=== PATIENT | female | born 1945 | race Caucasian/White ===

== ENCOUNTER 2019-04-23 15:00 | Outpatient (CLI) | payer MEDICARE, SELFPAY ==
--- NOTE | ~2019-04-23 | MR_ITS ---
EXAMINATION: MR lumbar spine wo con DATE: 04/23/2019 16:56 INDICATION: Low back pain. TECHNIQUE: Magnetic resonance imaging (MRI) of the lumbar spine was performed without intravenous con trast. Sequences included sagittal T2-weighted FSE, sagittal T2-weighted FS FSE, sagittal T1-weighted FSE, and axial T2-weighted FSE. COMPARISON: Lumbar spine MRI 07/08/2017 FINDINGS: There is 5 degrees levocurvature of lumbar spine. There is 3 mm anterolisthesis of L3 on L4 . Vertebral body heights are normal. There are changes of posterior fusion procedure from L3 to L5 wi th pedicle screws. There are changes of L4 laminotomy with chronic seroma in the postsurgical bed. Th ere is moderately decreased disc height at L1-L2, L2-L3, L3-L4, and L5-S1 and severely decreased disc height at L4-L5. The distal spinal cord signal intensity is normal. The conus medullaris is at L1-L2 . The following disc levels are specifically discussed: L1-L2: The disc is bulging with superimposed left central extrusion. There is severe bilateral facet joint osteoarthritis. There is mild bilateral neural foraminal stenosis. There is mild central canal stenosis. L2-L3: The disc is bulging with superimposed left central extrusion. There is severe bilateral facet joint osteoarthritis. There is mild bilateral neural foraminal stenosis. There is moderate central ca nal stenosis. L3-L4: There is a left foraminal extrusion. There is severe bilateral facet joint osteoarthritis. The re is mild bilateral neural foraminal stenosis. There is no central canal stenosis. L4-L5: The disc is bulging with an annular fissure. There is severe bilateral facet joint osteoarthri tis. There is moderate right and mild left neural foraminal stenosis. There is mild central canal luis miguel nosis with posterior decompression. L5-S1: The disc is bulging. There is severe bilateral facet joint osteoarthritis. There is moderate b ilateral neural foraminal stenosis. There is mild central canal stenosis. IMPRESSION: 1. Severe lumbar spondylosis, stable from 07/08/2017. 2. Posterior fusion procedure from L3 to L5. Reviewed, dictated and finalized at location A. ER
--- NOTE | ~2019-04-23 | MR_ITS ---
EXAMINATION: MR hip LT wo con DATE: 04/23/2019 16:57 INDICATION: Left hip pain and weakness TECHNIQUE: Magnetic resonance imaging (MRI) of the left hip was performed without intravenous contra st. Sequences included full-field axial PD-weighted FS FSE and T1-weighted FSE, coronal of the pelvis with PD-weighted FS FSE, small field of view of the left hip with axial PD-weighted FS FSE, sagitta l PD-weighted FS FSE and coronal PD weighted FS FSE. Additional radial T1-weighted FGR oriented ortho gonal to the acetabular rim were obtained for evaluation of the labrum. COMPARISON: None FINDINGS: Bones/labrum/cartilage: Alignment is normal. No fracture, avascular necrosis or pathologic marrow replacing process. Mild to moderate left hip osteoarthritis with partial thickness cartilage loss resulting posterior and poste rosuperior predominant nonuniform joint space narrowing but without degenerative subarticular changes . The left acetabular labrum appears small likely related to hypertrophic osteophyte formation along the rim of the acetabulum. No discrete labral tear. Laminectomies and posterior spinal fusion procedu re with vertical joel and pedicle screw fixation in the visualized lumbar spine. See separate lumbar s pine MRI report for further detail. Fluid: Symmetric physiologic amount of fluid within both hip joints. Soft tissues: There is a large full-thickness tear involving the entire lateral facet of the greater trochanteric i nsertion of the left gluteus medius medius tendon which measures approximately 2.5 cm AP. There is up to 2-3 cm proximal retraction of the torn portion of the tendon. The small more posterior portion of the tendon inserting upon the posterior superior facet appears to remain intact. There also appears to be a mild partial tear along a portion of the myotendinous junction of the left gluteus edouard at the level of the greater trochanter which extends for approximately 5 cm craniocaudally. The gluteus edouard tendon remains intact. There is fluid collection likely contiguous with the greater trochant indy bursa which extends along the gluteus edouard tear defect which measures up to 2.2 x 1.7 cm in m aximal transaxial dimensions. The left gluteus minimus tendon remains normal. On the larger field of view images there is mild right subcortical gluteus medius bursitis with thinn ing of the anterior portion of the gluteus medius medius tendon with mild cephalad retraction of the myotendinous junction which is located approximately 2.5 cm above the level of the tip the greater tr ochanter consistent with likely partial thickness tear with no discernible tear defect appreciated. M ild tendinopathy without discrete tear at the right gluteus minimus tendon and at the bilateral ischi al tuberosity origins of the proximal hamstring tendons. The bilateral iliopsoas tendons are normal. No asymmetric atrophy or hypertrophy of the musculature of the pelvis or proximal thighs. Limited fina luation of visceral organs of the pelvis is unremarkable. No pathologically enlarged pelvic/inguinal lymphadenopathy. IMPRESSION: 1. Large full-thickness tear involving the lateral facet insertion of the left gluteus medius medius tendon and adjacent partial tear along a relatively small portion of the myotendinous junction of the left gluteus edouard. 2. Mild to moderate left hip osteoarthritis. 3. Mild tendinopathy without discrete tear at the right gluteus minimus and likely partial thickness tear at the lateral footplate of the right gluteus medius tendon evidenced by mild proximal retractio n of the myotendinous junction. Reviewed, dictated and finalized at location A. L DIE PRESS SET UP OPERATOR
== END 2019-04-23 15:01 | disposition home or self-care (01) ==
PROVIDERS: PCP Internal Medicine; Visit Provider Orthopaedic Surgery
DX: S76.012A Strain of muscle, fascia and tendon of left hip, initial encounter (principal); M48.00 Spinal stenosis, site unspecified; M16.12 Unilateral primary osteoarthritis, left hip; M47.816 Spondylosis without myelopathy or radiculopathy, lumbar region; M76.02 Gluteal tendinitis, left hip; Z98.1 Arthrodesis status
CPT/HCPCS: 72148; 73721

== ENCOUNTER 2019-12-10 06:54 | Outpatient (CLI) | payer MEDICARE, SELFPAY ==
--- NOTE | ~2019-12-10 | CT_ITS ---
EXAMINATION: CT brain wo/w con DATE: 12/10/2019 07:35 INDICATION: Headache, unspecified. TECHNIQUE: Computed tomography (CT) of the head was performed without and with 100 mL Omnipaque 350 i ntravenous contrast. The mA was adjusted according to patient size. Iterative reconstruction techniqu e was employed. The dose-length product was 1210.67 mGy-cm. COMPARISON: None FINDINGS: There is no intracranial hemorrhage, acute infarction, or abnormal intracranial mass lesion . There are scattered areas of low attenuation in the cerebral white matter, which is within normal l imits for the patient's age. The ventricles are normal in size. The paranasal sinuses are clear. The orbits are normal. The mastoid air cells are normal. IMPRESSION: 1. Normal aging brain. Reviewed, dictated and finalized at location A. IMPRESSION: 1. Normal aging brain.
[2019-12-10 10:31] LABS: Estimated Glomerular Filt Rate > 60
== END 2019-12-10 06:55 | disposition home or self-care (01) ==
PROVIDERS: PCP Internal Medicine; Visit Provider Internal Medicine
DX: R51.9 Headache, unspecified (principal)
CPT/HCPCS: 70470; Q9967

== ENCOUNTER 2021-02-14 09:52 | Outpatient (CLI) | payer MEDICARE, SELFPAY ==
--- NOTE | 2021-02-14 10:47 | ECG_ITS ---
Measurements Intervals [place] Rate: 67 P: 48 VA: 182 QRS: 31 QRSD: 91 T: 48 QT: 450 QTc: 478 Interpretive Statements SINUS RHYTHM FREQUENT VENTRICULAR PREMATURE COMPLEXES LOW QRS VOLTAGE IN PRECORDIAL LEADS ABNORMAL ECG Electronically Signed On 02-14-2021 11:04:37 DIE ATTACHER by Sergei Leavitt D.O.
[2021-02-14 11:24] LABS: Basophils Absolute Auto 0.1 K/mm3 (0.0-0.1); Basophils Percent Auto 1.2 % (0.2-1.2); Eosinophils Absolute Auto 0.2 K/mm3 (0-0.3); Eosinophils Percent Auto 4.3 % (0-4.4); Hematocrit 45.6 % (37.0-47.0); Immature Granulocyte Absolute 0.02 K/mm3 (0.00-0.031); Immature Granulocyte Percent A 0.4 % (0-0.5); Lymphocytes Absolute Auto 1.17 K/mm3 (0.9-3.2); Lymphocytes Percent Auto 23.7 % (18.3-44.2); Mean Corpuscular HGB Conc 32.9 g/dl (32-36); Mean Corpuscular Hemoglobin 33.3 pg (26-34); Mean Corpuscular Volume 101.1 fl (80-100); Mean Platelet Volume 11.3 fl (7.4-10.4); Monocytes Absolute Auto 0.4 K/mm3 (0.1-0.6); Monocytes Percent Auto 7.7 % (2.6-8.5); Neutrophils Absolute Auto 3.1 K/mm3 (1.3-6.7); Neutrophils Percent Auto 62.7 % (45.5-73.1); Platelet Count Result 171 k/mm3 (150-375); Red Blood Count 4.51 M/mm3 (4.2-5.4); Red Cell Distribution Width 13.1 % (11.5-14.5); White Blood Count 4.9 K/mm3 (4.5-10.0)
[2021-02-14 11:29] LABS: Hemoglobin A1C 5.5 % (<5.7)
[2021-02-14 11:40] LABS: Albumin Level 3.9 g/dL (3.5-5.1); Anion Gap 6 mmol/L (8-16); Blood Urea Nitrogen 16 mg/dL (7-17); Calcium 9.2 mg/dL (8.4-10.2); Carbon Dioxide 28 mmol/L (22-30); Chloride 104 mmol/L (98-107); Estimated Glomerular Filt Rate > 60; Glucose 121 mg/dL (65-110); Potassium 3.9 mmol/L (3.4-5.0); Sodium 138 mmol/L (137-145)
[2021-02-14 12:11] LABS: Urine Cotinine NEGATIVE
== END 2021-02-14 09:53 | disposition home or self-care (01) ==
LOC: ANHSURGERY 09:55
PROVIDERS: PCP Internal Medicine; Visit Provider Orthopaedic Surgery
DX: Z01.818 Encounter for other preprocedural examination (principal); M15.9 Polyosteoarthritis, unspecified; R94.31 Abnormal electrocardiogram [ECG] [EKG]
CPT/HCPCS: 80048; 80307; 82040; 83036; 85025; 87070; 93005

== ENCOUNTER 2021-02-28 10:55 | Outpatient (CLI) | payer MEDICARE, SELFPAY ==
[2021-02-28 11:27] LABS: EDCOVIDSCREEN Negative (Negative)
== END 2021-02-28 10:56 | disposition home or self-care (01) ==
LOC: ANHSURGERY 10:59
PROVIDERS: PCP Internal Medicine; Visit Provider Orthopaedic Surgery
DX: Z20.822 Contact with and (suspected) exposure to COVID-19 (principal)
CPT/HCPCS: 87426; C9803

== ENCOUNTER 2021-03-01 01:23 | Day surgery (SDC) | payer MEDICARE, SELFPAY ==
[2021-02-14 09:56] VITALS: BP 138/80; PULSE 72; RESP 18; TEMP 37.3; O2SAT 95; BMI 33.9
--- NOTE | 2021-02-14 09:57 | PC.NURSE ---
Report to the Outpatient Waiting Room, entrance under the green pavilion located off [facility], at time _0600_ on date _03/01/21_. OR Time: _0730 AM__. - You and your visitor will be asked a series of questions to screen for COVID 19 for your protection. - A mask is required within the hospital. - Only one visitor is allowed at this time. Patient visitors will be guided where to wait when not with patient. Preoperative COVID Testing Requirements: No COVID Test needed if: (proof is required; if not received patient will have Rapid Test prior to entry) - Patient has received COVID Vaccine at least 14 days prior to procedure date or - Patient has positive COVID test result within last 90 days of surgery date. COVID Test needed if above criteria is not met If not COVID vaccinated a COVID test must be conducted within 72 hours of surgery and patient is asked to isolate self from time of testing until procedure. You will go to the [facility] for your COVID testing. The [facility] is located at the corner of [address] [facility]. You will only be called if COVID results are positive and your surgeon may reschedule your elective surgery date. Patients may have clear liquids (water, carbonated beverages, clear teas, apple juice) until 3 hours prior to surgery (0430 AM) with a maximum of 20 ounces. - No food from midnight until time of surgery - Infants may have breast milk until 4 hours before surgery, infant formula 6 hours prior to surgery. - Children will be allowed to drink immediately following surgery. If applicable, please bring a bottle or sippy cup to assist with drinking. Juice, water, soda, and popsicles are readily available. For infants on formula, please bring formula the day of surgery. Pacifiers are allowed. Take the following medications with a SIP of water the morning of surgery: __LEVOTHYROXINE, PAIN PILL IF NEEDED Medications to discontinue per physician _NSAIDS [address] CHRISTOPHER, VITAMIN D3 - 3 DAYS PRIOR PER ANESTHESIA Date to take last dose__NSAIDS 02/21/21, VITAMIN D3 02/25/21 Please no make-up, nail turkmen, hairspray, perfume, deodorant, or body powder the day of surgery. No jewelry (including any body piercings) or valuables the day of surgery, leave them at home. Please take a shower or bath the night before, or the morning of, surgery with an antibacterial soap. Wear comfortable, loose fitting clothing. Children are encouraged to wear pajamas. - Jewelry must be removed prior to entering the operating room. Rings and piercings that are not removed may be cut off. - The hospital will not accept responsibility for valuables. - Please leave all valuables, including medications, at home the day of surgery. If you are going home after surgery, a licensed dedicated truck driver must drive you home. - NO public transportation without another adult. - We recommend that an adult stay with you for 24 hours following discharge. - We also recommend that you do not drive, make important decision, drink alcoholic beverages, or take any drugs that were not prescribed by your health care provider for at least 24 hours after your discharge time. For Pediatric surgeries, we recommend two adults accompany the child home (only one inside the building at this time). Follow any additional instructions given to you from your surgeon. Telephone instructions given to ____PT and asked if any additional questions and then verbalized understanding. Patient advised to call surgeon office or pre surgery nurse liaison [phone] if any additional questions.
--- NOTE | 2021-02-27 12:48 | PM.IMHP ---
H&P: HPI History of Present Illness Date/Time: 02/27/21 12:48 75-year-old female patient of Dr. Abel who presents today for a right total knee arthroplasty. She had her left knee replaced in 2017. She is very happy with her results. She has been treating her right knee nonsurgically for last several years with cortisone injections as well as medications. Last cortisone injection was October 27, 2019. patient has reached a point where she feels she is ready to proceed with right total knee arthroplasty. Chief Complaint: Right knee DJD Review of Systems Review of Systems: All systems reviewed & are unremarkable except as noted in HPI and below PMFSH Past Medical History Medical History Degenerative arthritis of thumb Degenerative retinal drusen, both eyes Dyslipidemia Dysuria Essential (primary) hypertension Female bladder prolapse Hypothyroidism, acquired IGT (impaired glucose tolerance) Vitamin D deficiency Surgical History Surgical History History of back surgery History of cholecystectomy Hx of spinal fusion Family History Family History Mother Cerebrovascular accident, Onset Age: 59 Patient's mother is , Onset Age: 59 Father Family history of coronary artery disease Patient's father is Acute myocardial infarction, Onset Age: 64 Other Diabetes mellitus Family history of malignant neoplasm of breast in first degree relative Family history of malignant neoplasm of male breast Hypertension Social History Social History Smoking status: Never smoker Second hand tobacco smoke exposure: No Additional smoking assessment comments: PT DENIES ALL FORMS OF TOBACCO USE Alcohol intake: current Drinks per week: 12 Alcohol use details: Social Substance use: never Substance use type: does not use Spiritual care concerns: No Meds Home Medications and Allergies Home Medications Medication Instructions Recorded Confirmed Type cholecalciferol (vitamin D3) 1,250 1,250 mcg PO WEEKLY #8 cap 01/16/21 02/14/21 Rx mcg (50,000 unit) capsule hydrocodone 5 mg-acetaminophen 325 1 tablet PO Q8H PRN 02/02/21 02/14/21 History mg tablet famotidine 40 mg QAM 02/14/21 02/14/21 History hydrochlorothiazide 25 mg QAM 02/14/21 02/14/21 History levothyroxine 112 mcg PO QAM 02/14/21 02/14/21 History losartan 100 mg QAM 02/14/21 02/14/21 History Allergies Allergy/AdvReac Type Severity Reaction Status Date / Time No Known Allergies Allergy Verified 02/23/21 08:01 Exam Narrative: 75-year-old female alert pleasant. She is 5 ft 10 and 230 lb. Range of motion of the right knee is from 20-105 degrees. She has a 5 cm superficially healed laceration/scar from childhood injury in the anterior lateral aspect of the right knee. She does have a slight feeling of numbness in all of her toes bilaterally from previous lumbar surgery. 2+ dorsalis pedis and posterior tibial artery pulse. No edema in lower extremities. Skin is normal. Hip has full range of motion on the right without discomfort. Normal quad strength. Negative Stinchfield maneuver. Has just a trace effusion in the knee. Mild tenderness medially. Resp: Auscultation: clear to auscultation bilaterally Cardio: Rate: regular rate Rhythm: regular rhythm Assessment and Plan Additional Plan 75-year-old female who has severe medial compartment arthritis in the right knee with continued symptoms. Again she feels she is ready proceed with total knee arthroplasty. Surgical procedure as well as risk and complications reviewed and all questions were answered and we will proceed. She will avoid any aspirin ibuprofen products 1 week prior to surgery. She will see her primary care doctor for pre-
[2021-03-01] VITALS (17 sets, daily range): BP systolic 121–149; BP diastolic 55–87; PULSE 72–88; RESP 12–18; TEMP 36.1–37.1; O2SAT 93–100; BMI 32.2
--- NOTE | ~2021-03-01 | XR_ITS ---
EXAMINATION: XR knee RT 2V DATE: 03/01/2021 11:22 INDICATION: Postoperative evaluation following right total knee arthroplasty. TECHNIQUE: Anteroposterior and lateral views of the right knee were obtained. COMPARISON: 10/15/2011 FINDINGS: Right total knee arthroplasty with patellar resurfacing appears well seated and in near anatomic alig nment. No fractures identified. Expected postoperative subcutaneous and intra-articular gas. IMPRESSION: 1. Right total knee arthroplasty, negative for postoperative purposes. Reviewed, dictated and finalized at location B. MANAGER
[2021-03-01] MEDS: LACTATED RINGERS 1,000 ML 30 ML IV CONT ×2 (06:50→11:24)
[2021-03-01] MEDS: ACETAMINOPHEN 500 MG TABLET 1000 MG PO ×2 (06:50→18:21)
[2021-03-01] MEDS: TRANEXAMIC ACID 1,000MG/ISO100 1,000 MG/100 ML BAG 200 MG IVPB (07:00)
--- NOTE | 2021-03-01 07:07 | WPDANESEPPF ---
Anes - Initial Pre Proc Eval Procedure: Operation Date: 03/01/21 07:30 Proposed Procedures p Right Total Knee Arthroplasty - Himanshu Alas MD Date/Time: 03/01/21 07:07 Surgeon: Himanshu Alas MD Pre Op Diagnosis: OA right knee Patient Data Age: 75 Gender: F Height: 1.78 m Weight: 107.3 kg Last Vital Signs Temp 99.1 F 02/14/21 09:56 Pulse 72 02/14/21 09:56 Resp 18 02/14/21 09:56 BP 138/80 02/14/21 09:56 Pulse Ox 95 02/14/21 09:56 Allergies Allergy/AdvReac Type Severity Reaction Status Date / Time No Known Allergies Allergy Verified 03/01/21 06:27 Home Medications Medication Instructions Recorded Confirmed Type cholecalciferol (vitamin D3) 1,250 1,250 mcg PO WEEKLY #8 cap 01/16/21 03/01/21 Rx mcg (50,000 unit) capsule hydrocodone 5 mg-acetaminophen 325 1 tablet PO Q8H PRN 02/02/21 03/01/21 History mg tablet famotidine 40 mg QAM 02/14/21 03/01/21 History hydrochlorothiazide 25 mg QAM 02/14/21 03/01/21 History levothyroxine 112 mcg PO QAM 02/14/21 03/01/21 History losartan 100 mg QAM 02/14/21 03/01/21 History Patient hx anesthesia problems: none Family hx anesthesia problems: none Results Review: All pre-operative results and documents have been reviewed as part of the pre-operative evaluation. [facility] Past Medical History Medical History Degenerative arthritis of thumb Degenerative retinal drusen, both eyes Dyslipidemia Dysuria Essential (primary) hypertension Female bladder prolapse Hypothyroidism, acquired IGT (impaired glucose tolerance) Vitamin D deficiency Surgical History Surgical History History of back surgery History of cholecystectomy Hx of spinal fusion Family History Family History Mother Cerebrovascular accident, Onset Age: 59 Patient's mother is , Onset Age: 59 Father Family history of coronary artery disease Patient's father is Acute myocardial infarction, Onset Age: 64 Other Diabetes mellitus Family history of malignant neoplasm of breast in first degree relative Family history of malignant neoplasm of male breast Hypertension Social History Social History Smoking status: Never smoker Second hand tobacco smoke exposure: No Additional smoking assessment comments: PT DENIES ALL FORMS OF TOBACCO USE Alcohol intake: current Drinks per week: 12 Alcohol use details: Social Substance use: never Substance use type: does not use Living arrangements: with family Spiritual care concerns: No Anes - Eval Final PreProcedure Day of Procedure 03/01/21 07:07 Patient weight: obese Heart: regular rate and rhythm Lungs: clear to auscultation Airway: Mallampati scale class III Neurological: alert and oriented Last oral intake: >/= 8 hours ASA classification: III Emergent: no Anesthetic plan: proceed Anesthesia type and monitoring: general ETT and standard monitoring Results Review: All pre-operative results and documents have been reviewed as part of the pre-operative evaluation. Informed Consent: The patient's anesthetic plan and its attendant risks and benefits were discussed with the patient/family/POA. Questions were solicited and answers provided to the satisfaction of the patient/family/POA.
--- NOTE | 2021-03-01 07:18 | WPDHPUPDATE1 ---
History and Physical Update Update Date/Time: 03/01/21 07:18 History and Physical has been reviewed, including an updated exam of the patient. There are NO changes in the patient's condition. Risks, benefits, and alternatives have been discussed and questions answered. Patient agrees to proceed with procedure.
[2021-03-01] MEDS: ceFAZolin 2 GM/D5W 50 ML 2 GM/50 ML BAG IVPB (07:30)
[2021-03-01] MEDS: ceFAZolin SODIUM 1 GM VIAL 3 GM IRRIGATION (07:52)
[2021-03-01] MEDS: TRANEXAMIC ACID 1,000 MG/10 ML AMPUL 1000 MG IV PUSH (10:54)
[2021-03-01] MEDS: ceFAZolin SODIUM 1 GM VIAL IV PUSH (10:54)
--- NOTE | 2021-03-01 11:06 | W.PM.PROC2 ---
Procedure Note - Detailed Date of Procedure 03/01/21 Pre-op Diagnosis OA right knee Post-op Diagnosis same Procedure Performed Right total knee arthroplasty Surgeon Himanshu Alas MD Second Worker Waleska Kline Anesthesia general Findings Same. Patient had a 20 degree flexion contracture under anesthesia at the beginning of procedure. Description of Procedure Patient was brought to the operating room and general anesthesia was administered. She received 2 g of Ancef weight based vancomycin 1 g of tranexamic acid preoperatively the right leg prepped draped usual fashion. Under anesthesia against the weight of gravity she continued to exhibit a 20 degree flexion contracture. Limb was exsanguinated tourniquet elevated to 300 mmHg. A 7 in longitudinal midline incision was used and a vastus medialis splitting approach utilized splitting the vastus medialis at the level of the superior pole of the patella. Infrapatellar and suprapatellar fat pads were excised and a quadriceps synovectomy carried out. The patella measured 23.5 mm in thickness and was cut to 15 mm. Bone quality was excellent. Protector cap applied. Guide joel was inserted down the femoral canal after aspiration of canal contents using 5 degree valgus cutting bushing 10 mm of bone removed the distal femur. This removed about 7 laterally. Next the tibia was cut. We made a skim cut off the low point of the medial tibial plateau. Meniscal remnants were excised and the PCL released. Flexion gap measured 8 mm medially 10 mm laterally. The femoral sizing guide was applied with 3? of external rotation which matched Whitesides line. Posterior referencing pinholes were placed and the femur was cut to a 67.5 vanguard. This gave a line to line cut anterior posterior medial to lateral. At 90? we were able to just barely insert the 10 mm CR trial which was equally snug medially and laterally. This was too tight however. Severe flexion contracture also. Therefore, an additional 2 mm of bone removed the tibial plateau at this time again perpendicular to the axis of the tibia. Bone quality was excellent in the femur and tibia also. The tibia was sized to a 71. The 75 would overhang. The 71 was rotated relative medial 1/3 of the tibial tubercle in the anterior surface of the tibial plateau. This was punched and we trialed. The 10 was appropriate at 90? of flexion but excessively tight in extension lacking about 20?. It seemed tighter laterally and medially. She did not have a significant varus deformity preoperatively even though she had [id number] medial compartment osteoarthritis. Therefore we took care to avoid any medial capsule release from the tibia. An additional 2 mm of bone removed from the distal femur chamfer cuts revisited. Posterior femoral osteophyte was removed from the distal femur with the trial femur in place. A posterior capsular release was carried out from the distal femur both and laterally from the lateral head of the gastroc head of gastroc. On trialing again the knee with now lacked about 5? of extension. We had a little bit of play medially 2 mm no plate laterally. Hypertrophic synovium was removed from over the iliotibial band. An additional 1 mm bone was removed the distal femur chamfer cuts revisited and on trialing we had about 3 degree flexion contracture with a barely positive bounce. It was still tight laterally in extension. At 90? anterior drawer was tighter laterally than medially. And although the alignment of the tibial tray looked perfect. I felt the best solution was to cut the tibia in 1 degree of valgus as I felt it would be a little bit too tight laterally through flexion now. Tibial cutting guide was applied we carefully removed 1 mm of bone from the lateral plateau relative to the medial. We took care to make sure that the tibial tray sat perfectly flat without rocking before reinserting the punch and then on trialing now the knee came out to within 1 o
[2021-03-01] MEDS: fentaNYL CITRATE INJ (*CRX) 100 MCG/2 ML VIAL 25 MCG IV PUSH ×7 (11:39→12:42)
--- NOTE | 2021-03-01 14:36 | PC.NURSE ---
This patient, Luz Campos, was admitted to [facility] Surgery-1. Patient/family oriented to hospital policies and general routines including ID bracelet, bed and alarms, visiting hours, pain management, procedures, bathroom and other care routines, personal items, smoking policy, room service/diet, and visiting hours. Information on how to activate the Rapid Response Team has been discussed. Patient/Family are encouraged to report perceived risks to care and to ask questions if they do not understand what they are told or what they should do.
[2021-03-01] MEDS: oxyCODONE HCL (*CRX) 5 MG TAB IR PO ×3 (15:02→21:56)
--- NOTE | 2021-03-01 16:10 | PM.IMCN ---
Assessment and Plan Assessment and plan (1) S/P total knee arthroplasty: Code(s): Z96.659 - Presence of unspecified artificial knee joint Status: Acute Assessment and Plan: Postop day #0 after having right total knee arthroplasty by Dr. Alas Patient is feeling well at this time postop Pain management, Discharge planning, Post-op care, DVT Prophylaxis per Dr. Alas I was consulted for medical management (2) Essential (primary) hypertension: Code(s): I10 - Essential (primary) hypertension Status: Acute Assessment and Plan: Blood pressure 143/64 postop. Will continue her home medications of losartan and HCTZ. Make adjustments if needed. (3) Hypothyroidism, acquired: Code(s): E03.9 - Hypothyroidism, unspecified Status: Acute Assessment and Plan: Continue levothyroxine. (4) Diarrhea: Code(s): R19.7 - Diarrhea, unspecified Status: Acute Assessment and Plan: Patient reported diarrhea prior to coming in. She states she is feeling well at this time and not having any more feelings of diarrhea. Will continue monitoring during her hospitalization. She states she normally has issues with constipation secondary to her chronic narcotic use. Additional Plan Thank you so much for the consultation please let me know if you have any questions or concerns. We will follow with you. HPI Data of Consult Consult date: 03/01/21 Requesting Physician: Himanshu Alas MD Primary Care Provider: Damian Abel, Consult Narrative Reason for consult: Medical management postop from surgery Narrative: Luz Campos is a 75 year old female with a history of left total knee arthroplasty, neck surgery, hypertension, dyslipidemia, hypothyroidism, who had a scheduled outpatient surgery with Dr. Alas for a right total knee arthroplasty which she underwent today 03/01/2021. Patient states she has been dealing with right knee pain that become gradually worse over the last 2-3 years. She has been using wheelchairs and motorized scooter storing long walks because she is having increased pain to her knee. Otherwise use the cane for short distances. She has been on chronic pain medications with temporary relief but finally decided to have her total knee arthroplasty. Currently she is reporting some sore throat and dry mouth from her surgery and intubation. She reports some intermittent lower extremity swelling that she talk to her PCP about and he wants to continue monitoring. Patient states she had some diarrhea on 02/26/2021 and her last episode was yesterday 02/28/2021. She is not having any symptoms at this time. She denies any fevers, chills, nausea, vomiting, abdominal pain, constipation, chest pain, shortness of breath, cough, calf pain, lightheadedness, dizziness, or any other symptoms at this time. Review of Systems Review of Systems: All systems reviewed & are unremarkable except as noted in HPI and below PMFSH Past Medical History Medical History Degenerative arthritis of thumb Degenerative retinal drusen, both eyes Dyslipidemia Dysuria Essential (primary) hypertension Female bladder prolapse Hypothyroidism, acquired IGT (impaired glucose tolerance) Vitamin D deficiency Surgical History Surgical History History of back surgery History of cholecystectomy Hx of spinal fusion Family History Family History Mother Patient's mother is , Onset Age: 59 Cerebrovascular accident, Onset Age: 59 Father Acute myocardial infar
[2021-03-01] MEDS: FAMOTIDINE 20 MG TABLET PO (20:30)
[2021-03-01] MEDS: APIXABAN 2.5 MG TABLET PO (20:36)
[2021-03-02] MEDS: ACETAMINOPHEN 500 MG TABLET 1000 MG PO ×2 (00:50→05:48)
[2021-03-02] MEDS: oxyCODONE HCL (*CRX) 5 MG TAB IR PO ×3 (02:00→09:58)
[2021-03-02 02:23] VITALS: BP 131/57; PULSE 73; RESP 18; TEMP 36.6; O2SAT 94
[2021-03-02] MEDS: LEVOTHYROXINE SODIUM 112 MCG TABLET PO (05:48)
[2021-03-02 06:13] VITALS: BP 109/60; PULSE 72; RESP 16; TEMP 36.6; O2SAT 98
[2021-03-02 06:15] LABS: Basophils Absolute Auto 0.1 K/mm3 (0.0-0.1); Basophils Percent Auto 0.3 % (0.2-1.2); Eosinophils Absolute Auto 0.1 K/mm3 (0-0.3); Eosinophils Percent Auto 0.6 % (0-4.4); Hematocrit 41.2 % (37.0-47.0); Hemoglobin 13.6 g/dL (12.0-15.0); Immature Granulocyte Absolute 0.04 K/mm3 (0.00-0.031); Immature Granulocyte Percent A 0.3 % (0-0.5); Lymphocytes Absolute Auto 1.75 K/mm3 (0.9-3.2); Lymphocytes Percent Auto 12.1 % (18.3-44.2); Mean Corpuscular Hemoglobin 32.9 pg (26-34); Mean Corpuscular Volume 99.5 fl (80-100); Monocytes Absolute Auto 1.1 K/mm3 (0.1-0.6); Monocytes Percent Auto 7.5 % (2.6-8.5); Neutrophils Absolute Auto 11.5 K/mm3 (1.3-6.7); Neutrophils Percent Auto 79.2 % (45.5-73.1); Platelet Count Result 155 k/mm3 (150-375); Red Blood Count 4.14 M/mm3 (4.2-5.4); Red Cell Distribution Width 13.2 % (11.5-14.5); White Blood Count 14.5 K/mm3 (4.5-10.0)
[2021-03-02 06:51] LABS: Anion Gap 8 mmol/L (8-16); Blood Urea Nitrogen 14 mg/dL (7-17); Calcium 8.9 mg/dL (8.4-10.2); Carbon Dioxide 27 mmol/L (22-30); Chloride 100 mmol/L (98-107); Estimated CRCL calculation 69 ml/min; Estimated Glomerular Filt Rate > 60; Glucose 121 mg/dL (65-110); Potassium 3.3 mmol/L (3.4-5.0); Sodium 135 mmol/L (137-145)
--- NOTE | 2021-03-02 07:23 | PM.PNORT ---
Subjective Subjective Date/Time Seen: 03/02/21 07:23 postop day 1 patient is alert pleasant. He has been afebrile vital signs stable. Blood pressure has been slightly elevated but stable morning labs were noted. Patient was multiple times yesterday and overnight walking going restroom uncomfortable. Overall pain is well controlled. Her dressing intact and dry. Neurovascular she is intact. Overall patient is doing very well. We will plan to have patient work with physical therapy this morning 1 more time and then plan to discharge her home after that if she continues doing well. Objective Data Vital Signs Vital Signs: Vital Signs - 24 hr 03/01/21 11:24 03/01/21 11:35 03/01/21 11:50 Temperature 36.3 C L Pulse Rate 88 84 83 Respiratory Rate 14 13 12 Blood Pressure 121/58 L 133/74 125/78 Pulse Oximetry 98 100 100 03/01/21 12:00 03/01/21 12:15 03/01/21 12:30 Temperature Pulse Rate 80 78 79 Respiratory Rate 13 12 13 Blood Pressure 136/66 147/67 H 146/68 H Pulse Oximetry 94 93 96 03/01/21 12:45 03/01/21 13:00 03/01/21 13:15 Temperature 36.1 C L Pulse Rate 78 79 77 Respiratory Rate 13 14 16 Blood Pressure 149/64 H 147/70 H 143/64 H Pulse Oximetry 97 95 99 03/01/21 13:30 03/01/21 14:00 03/01/21 14:30 Temperature Pulse Rate 81 72 Respiratory Rate 18 18 Blood Pressure 138/63 132/55 L Pulse Oximetry 96 97 99 03/01/21 15:00 03/01/21 16:30 03/01/21 22:00 Temperature 36.7 C Pulse Rate 82 73 75 Respiratory Rate 16 14 16 Blood Pressure 128/77 137/68 123/87 Pulse Oximetry 98 97 95 03/01/21 22:49 03/02/21 02:23 03/02/21 06:13 Temperature 36.9 C 36.6 C 36.6 C Pulse Rate 78 73 72 Respiratory Rate 18 18 16 Blood Pressure 128/86 131/57 L 109/60 Pulse Oximetry 98 94 98 Intake/Output Intake/Output: Intake & Output 02/27/21 02/28/21 03/01/21 03/02/21 23:59 23:59 23:59 23:59 Intake Total 2600 1000 Balance 2600 1000 Meds/Results Medications: Active Medications Generic Name Dose Route Start Last Admin Trade Name Marva PRN Reason Stop Dose Admin Acetaminophen 1,000 mg 03/01/21 18:00 03/02/21 05:48 Acetaminophen 500 Mg Tablet PO 1,000 mg Q6H INES Administration Apixaban 2.5 mg 03/01/21 21:00 03/01/21 20:36 Apixaban 2.5 Mg Tablet PO 03/13/21 09:01 2.5 mg Q12HR INES Administration Bisacodyl 10 mg 03/01/21 13:04 Bisacodyl 10 Mg Suppository RECTAL DAILY PRN Constipation Celecoxib 200 mg 03/02/21 08:00 Celecoxib 200 Mg Capsule PO DAILY@0800 INES Diphenhydramine HCl 25 mg 03/01/21 13:04 Diphenhydramine Hcl Inj 50 Mg/Ml Vial IV PUSH Q6H PRN Itching Famotidine 20 mg 03/01/21 21:00 03/01/21 20:30 Famotidine 20 Mg Tablet PO 20 mg Q12HR INES Administration Hydrochlorothiazide 25 mg 03/02/21 09:00 Hydrochlorothiazide 25 Mg Tablet BY MOUTH QAM INES Vancomycin HCl 1,000 mg in 250 mls @ 250 mls/hr 03/01/21 19:00 03/01/21 21:23 Vancomycin 1,000 Mg/D5w 250 Ml IVPB 03/02/21 07:59 Infused Q12H INES Infusion Cefazolin Sodium 1 gm in 50 mls @ 100 mls/hr 03/01/21 15:00 03/02/21 06:46 Ancef 1 Gm/D5w 50 Ml Pm IVPB 03/02/21 07:29 100 mls/hr Q8H INES Administration Levothyroxine Sodium 112 mcg 03/02/21 06:30 03/02/21 05:48 Levothyroxine Sodium 112 Mcg Tablet PO 112 mcg DAILY@0630 INES Administration Losartan Potassium 100 mg 03/02/21 09:00 Losartan Potassium 100 Mg Tablet BY MOUTH QAM INES Magnesium Hydroxide 30 ml 03/01/21 13:04 Magnesium Hydroxide Susp 30 Ml Udc PO BID PRN Constipation Naloxone HCl 0.1 mg 03/01/21 13:04 Naloxone Hcl 0.4 Mg/Ml Vial IV PUSH Q2M PRN Opiate Reversal Ondansetron HCl 4 mg 03/01/21 13:04 Ondansetron Inj 4 Mg/2 Ml Vial IV PUSH Q4H PRN Nausea And Vomiting Oxycodone HCl 5 mg 03/01/21 13:04 Oxycodone Hcl (*Crx) 5 Mg Tab Ir PO Q4H PRN Pain Rated 4-6 Oxycodone HCl 5 mg
--- NOTE | 2021-03-02 07:27 | PM.DS ---
DS: Admitting Diagnosis Discharge Date 03/02/2021 Admitting Diagnosis Right knee DJD DS: Summary Hospital Course Hospital Course: Stable Time Spent with Patient Time attestation: Total time spent providing and/or coordinating discharge services: 75-year-old female underwent right total knee arthroplasty on 03/01/2021. Underwent the procedure without any complications. Postop plan she has been afebrile vital signs stable. Neurovascular she is intact. She is weight-bearing as tolerated. She is up walking the day of surgery multiple times with physical therapy as well as to the restroom and comfortable. Her pain is well controlled with oxycodone 5 mg as well as scheduled Tylenol and Celebrex 200 mg daily. Patient overall is comfortable and doing well. For plan of discharge home on 03/02/2021. Patient was advised to keep leg elevated at home prevent swelling but to exercise on a regular basis. Patient had a very stiff knee with a significant flexion contracture prior to surgery and she was encouraged to work hard on her therapy at home so that she can get motion back knees with possible. She has outpatient therapy starting next Saturday. Patient was advised questions concerns she is to call the office otherwise see her at today DS: Data Data Completed and Pending Labs on day of discharge: Labs from last 24 hours 03/02/21 03/02/21 03/01/21 06:06 06:06 06:32 WBC 14.5 H RBC 4.14 L Hgb 13.6 Hct 41.2 MCV 99.5 MCH 32.9 MCHC 33.0 RDW 13.2 Plt Count 155 MPV 11.0 H Immature Gran % (Auto) 0.3 Neut % (Auto) 79.2 H Lymph % (Auto) 12.1 L [place] % (Auto) 7.5 Eos % (Auto) 0.6 Baso % (Auto) 0.3 Lymph # (Auto) 1.75 [place] # (Auto) 1.1 H Eos # (Auto) 0.1 Baso # (Auto) 0.1 Abs Immat Gran (auto) 0.04 H Absolute Neuts (auto) 11.5 H Absolute Nucleated RBC 0.0 Nucleated RBC % 0.0 Sodium 135 L Potassium 3.3 L Chloride 100 Carbon Dioxide 27 Anion Gap 8 BUN 14 Creatinine 0.80 Estim Creat Clear Calc 69 Estimated GFR > 60 Glucose 121 H Calcium 8.9 Blood Type A Positive Antibody Screen Negative Discharge Plan Discharge Patient Disposition: Home, Self-Care Discharge Instructions: HIMANSHU ALAS M.D [facility], [place] [address] [place] [id number] POST-OPERATIVE DISCHARGE INSTRUCTIONS TOTAL KNEE ARTHROPLASTY 1. When resting, lie on back with leg elevated above hear to minimize swelling. Significant swelling could indicate a blood clot and if this occurs call the office (or go to the ER) to have a venous ultrasound. 2. Do exercise 5 times a day. 3. Do not sit in chair with leg down except for meals. 4. Wound Care: Nursing will give additional dressings at discharge. Patient to change dressing at home 1 week from surgery, then maintain until seen in office. 5. May shower with dressing in place. 6. Follow weight bearing status instructions. Stand Alone Forms: General Discharge Instructions Follow-up/Referrals: Himanshu Alas MD [Physician] - Keep Reg. Scheduled Appt. Discharge Medications: New celecoxib [Celebrex] 200 mg Capsule 200 mg PO DAILY@0800 Qty: 30 RF: 0 polyethylene glycol 3350 [Miralax] 17 gram Powder In Packet 17 g PO QAM Qty: 30 RF: 0 sennosides-docusate sodium [Senokot-S] 8.6-50 mg Tablet 2 tab PO BID Qty: 60 RF: 0 acetaminophen 500 mg Tablet 1,000 mg PO Q6H Qty: 90 RF: 0 oxycodone 5 mg Tablet 5 mg PO Q4H Qty: 40 RF: 0 Eliquis 2.5 mg Tablet 2.5 mg PO Q12HR Qty: 27 RF: 0 Continued cholecalciferol (vitamin D3) 1,250 mcg (50,000 unit) capsule 1,250 mcg PO WEEKLY Qty: 8 RF: 0 famotidine 40 mg tablet 40 mg QAM RF: 0 hydrochlorothiazide 25 mg tablet 25 mg QAM RF: 0 losartan 100 mg tablet 100 mg QAM RF: 0 levothyroxine 112 mcg tablet 112 mcg PO QAM RF: 0
[2021-03-02 08:00] VITALS: BP 104/53; PULSE 59; RESP 16; TEMP 36.5; O2SAT 96
[2021-03-02] MEDS: APIXABAN 2.5 MG TABLET PO (08:06)
[2021-03-02] MEDS: LOSARTAN POTASSIUM 100 MG TABLET BY MOUTH (08:06)
[2021-03-02] MEDS: CELECOXIB 200 MG CAPSULE PO (08:06)
[2021-03-02] MEDS: FAMOTIDINE 20 MG TABLET PO (08:06)
[2021-03-02] MEDS: hydroCHLOROthiazide 25 MG TABLET BY MOUTH (08:06)
[2021-03-02 09:16] LABS: Magnesium 1.8 mg/dL (1.6-2.3)
[2021-03-02] MEDS: POTASSIUM CHLORIDE 20 MEQ TABLET 40 MEQ PO (09:58)
== END 2021-03-02 10:35 | disposition home or self-care (01) ==
LOC: ANHSURGERY 06:05 → ANHSUROVER 03-02 07:31
PROVIDERS: Physician Assistant; Physician Assistant Surgical; PCP Internal Medicine; Visit Provider Orthopaedic Surgery
PROC: (CPT 27447; principal; 2021-03-01 07:30)
DX: M17.11 Unilateral primary osteoarthritis, right knee (principal); E78.5 Hyperlipidemia, unspecified; I10 Essential (primary) hypertension; E55.9 Vitamin D deficiency, unspecified; E03.9 Hypothyroidism, unspecified; R19.7 Diarrhea, unspecified; Z98.1 Arthrodesis status; E66.9 Obesity, unspecified; Z68.32 Body mass index [BMI] 32.0-32.9, adult; Z79.891 Long term (current) use of opiate analgesic
CPT/HCPCS: 27447; 36415; 73560; 80048; 80307; 82040; 83036; 83735; 85025; 86850; 86900; 86901; 87070; 93005; 97110; 97161; 97165; 97530; 97535; A9270; C1713; C1776; J0171; J0330; J0360; J0690; J1100; J1170; J1885; J2250; J2270; J2405; J2704; J2710; J2795; J3010; J3370; J7120

== ENCOUNTER 2021-03-16 10:31 | Outpatient (CLI) | payer MEDICARE, SELFPAY ==
--- NOTE | 2021-03-21 16:10 | WPDHOLTEREM ---
Holter/Event Monitor Holter/Event Monitor Date of procedure: 03/16/21 Holter/Event Procedure: 24 Hr Holter Monitor Indications: PVC Conclusion: 1. 24 hour holter monitor on 03/16/21. 2. Underlying rhythm is sinus rhythm. HR range 56-109 bpm; average HR 69 bpm. 3. There are 233 premature supraventricular complexes and 3 supraventricular couplets. No supraventricular tachycardia. 4. There are 6,889 premature ventricular complexes, 84 ventricular couplets, 7 ventricular triplets, 156 ventricular bigeminy, and 89 ventricular trigeminy. No ventricular tachycardia. 5. No sinoatrial or atrioventricular blocks. No significant pauses greater than 2 seconds. 6. No symptoms available for correlation.
== END 2021-03-16 10:32 | disposition home or self-care (01) ==
LOC: ANHCARD 10:32
PROVIDERS: PCP Internal Medicine; Visit Provider Internal Medicine
DX: I49.3 Ventricular premature depolarization (principal)
CPT/HCPCS: 93225; 93226

== ENCOUNTER 2021-04-11 07:29 | Outpatient (CLI) | payer MEDICARE, SELFPAY ==
--- NOTE | 2021-04-11 07:44 | ECHO_ITS ---
Patient Info Name: Luz Campos Age: 75 years : 1945 Gender: Female Ht: 70 in Wt: 215 lbs BSA: 2.22 m2 HR: 73 bpm BP: 162 / 94 mmHg Technical Quality: Good Exam Date: 04/11/2021 8:13 AM Exam Location: [facility] Patient Status: Outpatient Admit Date: 04/11/2021 Staff Ordering Physician: Damian Abel DO Reprint Sorter: Adrianne Mahajan RDCS Attending Provider: Damian Abel DO Referring Physician: Colten MARIANO; Exam Type: CA echo doppler color flow Study Info Indications I49.3 - Ventricular premature depolarization Complete two-dimensional, color flow and Doppler transthoracic echocardiogram is performed. Summary 1. Complete two-dimensional, color flow and Doppler transthoracic echocardiogram is performed. 2. Left ventricular chamber dimension is normal. 3. Ventricular septum is sigmoid shaped. No LVOT obstruction. 4. Left ventricular systolic function is normal, estimated at 60-65%. 5. There is mildly increased left ventricular wall thickness. 6. The left ventricular diastolic function is grade I diastolic dysfunction. 7. E/e' 17 is elevated. 8. Global longitudinal strain is normal at -19.4%. 9. Left atrial chamber dimension is mildly enlarged. 10. There is trace mitral valve regurgitation. 11. No pulmonary hypertension, estimated pulmonary arterial systolic pressure is 34 mmHg. Left Ventricle E/e' 17 is elevated. Global longitudinal strain is normal at -19.4%. Ventricular septum is sigmoid shaped. No LVOT obstruction. Left ventricular chamber dimension is normal. Left ventricular systolic function is normal, estimated at 60-65%. There is mildly increased left ventricular wall thickness. The left ventricular diastolic function is grade I diastolic dysfunction. Right Ventricle Right ventricular systolic function is normal and with normal TAPSE 2.3 cm. Right ventricular chamber dimension is normal. Left Atria Left atrial chamber dimension is mildly enlarged. Right Atria Right atrial chamber dimension is normal. Aortic Valve The aortic valve is trileaflet. There is no aortic valve stenosis. There is no aortic valve regurgitation. Pulmonic Valve There is no pulmonic regurgitation. Mitral Valve There is no mitral valve stenosis. There is trace mitral valve regurgitation. Tricuspid Valve There is no tricuspid valve regurgitation. No pulmonary hypertension, estimated pulmonary arterial systolic pressure is 34 mmHg. Pericardium/Pleural There is no pericardial effusion. Inferior Vena Cava Normal inferior vena cava with >50% collapse upon inspiration consistent with normal right atrial pressure, 5 mmHg. Aorta The aortic root size at the sinus of Valsalva is normal. Left Ventricular Outflow Tract Name Value Normal LVOT 2D LVOT Diameter 2.0 cm LVOT Doppler LVOT Peak Gradient 5 mmHg LVOT Mean Gradient 2 mmHg LVOT VTI 25 cm LVOT VTI/AV VTI Ratio 0.8 LVOT Stroke Volume 75 ml LVOT CO
== END 2021-04-11 07:30 | disposition home or self-care (01) ==
PROVIDERS: PCP Internal Medicine; Visit Provider Internal Medicine
DX: I49.3 Ventricular premature depolarization (principal); I51.7 Cardiomegaly
CPT/HCPCS: 93306

== ENCOUNTER 2021-05-17 10:53 | Outpatient (CLI) | payer MEDICARE, SELFPAY | END 2021-05-17 10:54 | disposition home or self-care (01) | LOC: ANHAUDASC 10:54 | PROVIDERS: PCP Internal Medicine; Visit Provider Internal Medicine | DX: H91.90 Unspecified hearing loss, unspecified ear (principal) | CPT/HCPCS: 92557; 92567 ==

== ENCOUNTER 2021-07-31 00:05 | Day surgery (SDC) | payer MEDICARE, SELFPAY ==
[2021-07-12 09:04] VITALS: BMI 31.6
--- NOTE | 2021-07-31 09:09 | WPDANESEPPF ---
Anes - Initial Pre Proc Eval Procedure: Operation Date: 07/31/21 11:30 Proposed Procedures p Screening Colonoscopy - Sami Chang MD Date/Time: 07/31/21 09:09 Surgeon: Sami Chang MD Pre Op Diagnosis: neoplasm screening Patient Data Age: 75 Gender: F Height: 1.78 m Weight: 100 kg Allergies Allergy/AdvReac Type Severity Reaction Status Date / Time No Known Allergies Allergy Verified 07/26/21 10:19 Home Medications Medication Instructions Recorded Confirmed Type meloxicam 15 mg tablet 15 mg PO DAILY PRN Pain 05/09/21 07/26/21 History levothyroxine 112 mcg tablet 112 mcg PO QAM #90 tabs 06/14/21 07/26/21 Rx cholecalciferol (vitamin D3) 1,250 1,250 mcg PO DAILY 07/12/21 07/26/21 History mcg (50,000 unit) capsule famotidine 40 mg tablet 40 mg PO DAILY 07/12/21 07/26/21 History raloxifene 60 mg tablet 60 mg PO DAILY 07/12/21 07/26/21 History hydrochlorothiazide 25 mg tablet 25 mg PO QAM #90 tabs 07/13/21 07/31/21 Rx losartan 100 mg tablet 100 mg PO QAM #90 tabs 07/13/21 07/31/21 Rx Patient hx anesthesia problems: none Family hx anesthesia problems: none Results Review: All pre-operative results and documents have been reviewed as part of the pre-operative evaluation. [facility] Past Medical History Medical History (Updated 07/31/21 @ 09:11 by Raymond Villafuerte MD) Degenerative arthritis of thumb Degenerative retinal drusen, both eyes Dyslipidemia Dysuria Essential (primary) hypertension Female bladder prolapse Gastroesophageal reflux disease Hypothyroidism, acquired IGT (impaired glucose tolerance) Obesity Osteoarthritis of multiple joints Vitamin D deficiency Surgical History Surgical History (Updated 07/26/21 @ 10:21 by Dom Metz MA) History of back surgery History of cholecystectomy Hx of spinal fusion Knee joint replacement by other means Family History Family History Mother Patient's mother is , Onset Age: 59 Cerebrovascular accident, Onset Age: 59 Father Acute myocardial infarction, Onset Age: 64 Patient's father is Family history of coronary artery disease Grandparent Acute myocardial infarction Liver cancer Throat cancer Other Diabetes mellitus Family history of malignant neoplasm of breast in first degree relative Family history of malignant neoplasm of male breast Hypertension Social History Social History Smoking status: Never smoker Second hand tobacco smoke exposure: No Additional smoking assessment comments: PT DENIES ALL FORMS OF TOBACCO USE Alcohol intake: current Drinks per week: 7 Alcohol use details: Social Substance use: never Substance use type: does not use Living arrangements: with family Spiritual care concerns: No Anes - Eval Final PreProcedure Day of Procedure 07/31/21 09:09 Patient weight: obese Heart: regular rate and rhythm Lungs: clear to auscultation Airway: Mallampati scale class III Neurological: alert and oriented Last oral intake: >/= 8 hours ASA classification: III Emergent: no Anesthetic plan: proceed Anesthesia type and monitoring: general GIVS and standard monitoring Results Review: All pre-operative results and documents have been reviewed as part of the pre-operative evaluation. Informed Consent: The patient's anesthetic plan and its attendant risks and benefits were discussed with the patient/family/POA. Questions were solicited and answers provided to the satisfaction of the patient/family/POA.
[2021-07-31 10:26] VITALS: BP 144/87; PULSE 83; RESP 18; TEMP 36.6; O2SAT 96; BMI 31.2
[2021-07-31] MEDS: LACTATED RINGERS 1,000 ML 150 ML IV CONT (10:33)
[2021-07-31] MEDS: AMPICILLIN 2 GM/NS 100 ML 2 GM/100 ML BAG IVPB (10:38)
--- NOTE | 2021-07-31 10:39 | PM.IMHP ---
H&P: HPI History of Present Illness Date/Time: 07/31/21 10:39 Chief Complaint: Neoplasia screening Narrative: this is a 75-year-old white female patient presents for neoplasia screening. Patient is current weight appetite bowel movements are normal. She denies abdominal pain. She has had no bleeding. Her last colonoscopy was 2008. Patient presents today for neoplasia screening. Family history is noncontributory. Review of Systems Review of Systems: Review of systems noncontributory. [facility] Past Medical History Medical History (Updated 07/31/21 @ 10:40 by Sami Chang MD) Degenerative arthritis of thumb Degenerative retinal drusen, both eyes Dyslipidemia Dysuria Essential (primary) hypertension Female bladder prolapse Gastroesophageal reflux disease Hypothyroidism, acquired IGT (impaired glucose tolerance) Obesity Osteoarthritis of multiple joints Vitamin D deficiency Surgical History Surgical History (Updated 07/26/21 @ 10:21 by Dom Metz MA) History of back surgery History of cholecystectomy Hx of spinal fusion Knee joint replacement by other means Family History Family History Mother Patient's mother is , Onset Age: 59 Cerebrovascular accident, Onset Age: 59 Father Acute myocardial infarction, Onset Age: 64 Patient's father is Family history of coronary artery disease Grandparent Acute myocardial infarction Liver cancer Throat cancer Other Diabetes mellitus Family history of malignant neoplasm of breast in first degree relative Family history of malignant neoplasm of male breast Hypertension Social History Social History Smoking status: Never smoker Second hand tobacco smoke exposure: No Additional smoking assessment comments: PT DENIES ALL FORMS OF TOBACCO USE Alcohol intake: current Drinks per week: 7 Alcohol use details: Social Substance use: never Substance use type: does not use Living arrangements: with family Spiritual care concerns: No Meds Home Medications and Allergies Home Medications Medication Instructions Recorded Confirmed Type meloxicam 15 mg tablet 15 mg PO DAILY PRN Pain 05/09/21 07/26/21 History levothyroxine 112 mcg tablet 112 mcg PO QAM #90 tabs 06/14/21 07/26/21 Rx cholecalciferol (vitamin D3) 1,250 1,250 mcg PO DAILY 07/12/21 07/26/21 History mcg (50,000 unit) capsule famotidine 40 mg tablet 40 mg PO DAILY 07/12/21 07/26/21 History raloxifene 60 mg tablet 60 mg PO DAILY 07/12/21 07/26/21 History hydrochlorothiazide 25 mg tablet 25 mg PO QAM #90 tabs 07/13/21 07/31/21 Rx losartan 100 mg tablet 100 mg PO QAM #90 tabs 07/13/21 07/31/21 Rx Allergies Allergy/AdvReac Type Severity Reaction Status Date / Time No Known Allergies Allergy Verified 07/26/21 10:19 Vital Signs Vital Signs - 24 hr 07/31/21 10:26 Temperature 97.8 F Pulse Rate 83 Respiratory Rate 18 Blood Pressure 144/87 H Pulse Oximetry 96 Oxygen Delivery Room Air Exam Narrative: Physical exam reveals patient to be alert. Vital signs stable. HEENT exam is unremarkable. Patient is anicteric. Lungs are clear to auscultation and percussion. Heart is without murmur or extra sounds. Abdominal exam bowel sounds are present soft nontender with no organomegaly. Digital external rectal exam is normal. Assessment and Plan Assessment and plan (1) Encounter for screening colonoscopy: Code(s): Z12.11 - Encounter for screening for malignant neoplasm of colon Status: Acute Assessment and Plan: Patient presents for screening colonoscopy. Appears to be at average risk for colon polyps. Further recommendations will be given after endoscopy.
[2021-07-31 11:11] VITALS: BP 116/63; PULSE 71; RESP 18; O2SAT 95
[2021-07-31 11:21] VITALS: BP 118/65; PULSE 68; RESP 18; O2SAT 95
[2021-07-31 11:31] VITALS: BP 123/89; PULSE 82; RESP 18; O2SAT 100
== END 2021-07-31 11:38 | disposition home or self-care (01) ==
PROVIDERS: PCP Internal Medicine; Visit Provider Internal Medicine Gastroenterology
PROC: 0DJD8ZZ Inspection of Lower Intestinal Tract, Via Natural or Artificial Opening Endoscopic (ICD-10-PCS; CPT 45378; principal; 2021-07-31 11:30)
DX: Z12.11 Encounter for screening for malignant neoplasm of colon (principal); D12.3 Benign neoplasm of transverse colon; K64.8 Other hemorrhoids; I10 Essential (primary) hypertension; K21.9 Gastro-esophageal reflux disease without esophagitis; E03.9 Hypothyroidism, unspecified; E55.9 Vitamin D deficiency, unspecified; M15.9 Polyosteoarthritis, unspecified; E66.9 Obesity, unspecified; Z68.31 Body mass index [BMI] 31.0-31.9, adult; Z98.1 Arthrodesis status; E78.5 Hyperlipidemia, unspecified
CPT/HCPCS: 45385; 88305; J0290; J2704; J7120

== ENCOUNTER 2022-05-04 10:08 | Outpatient (CLI) | payer MEDICARE, SELFPAY ==
[2022-05-04 11:12] LABS: Influenza A QL RT-PCR Negative (Negative); Influenza B QL RT-PCR Negative (Negative); RSV RNA, RT-PCR Negative (Negative); SARS-CoV-2 RNA PCR Negative
== END 2022-05-04 10:09 | disposition home or self-care (01) ==
LOC: ANHLAB 10:10
PROVIDERS: PCP Internal Medicine; Visit Provider Internal Medicine
DX: R50.9 Fever, unspecified (principal); Z20.822 Contact with and (suspected) exposure to COVID-19
CPT/HCPCS: 87637

== ENCOUNTER 2022-10-11 07:10 | Outpatient (CLI) | payer MEDICARE, SELFPAY ==
[2022-10-11 08:21] LABS: Basophils Absolute Auto 0.1 K/mm3 (0.0-0.1); Basophils Percent Auto 1.3 % (0.2-1.2); Eosinophils Absolute Auto 0.3 K/mm3 (0-0.3); Eosinophils Percent Auto 5.9 % (0-4.4); Hematocrit 45.4 % (37.0-47.0); Hemoglobin 14.9 g/dL (12.0-15.0); Immature Granulocyte Absolute 0.02 K/mm3 (0.00-0.031); Immature Granulocyte Percent A 0.4 % (0-0.5); Lymphocytes Absolute Auto 1.28 K/mm3 (0.9-3.2); Lymphocytes Percent Auto 27.2 % (18.3-44.2); Mean Corpuscular HGB Conc 32.8 g/dl (32-36); Mean Corpuscular Hemoglobin 33.1 pg (26-34); Mean Corpuscular Volume 100.9 fl (80-100); Mean Platelet Volume 11.3 fl (7.4-10.4); Monocytes Absolute Auto 0.5 K/mm3 (0.1-0.6); Monocytes Percent Auto 10.4 % (2.6-8.5); Neutrophils Absolute Auto 2.6 K/mm3 (1.3-6.7); Neutrophils Percent Auto 54.8 % (45.5-73.1); Platelet Count Result 175 k/mm3 (150-375); Red Cell Distribution Width 12.9 % (11.5-14.5); White Blood Count 4.7 K/mm3 (4.5-10.0)
[2022-10-11 08:43] LABS: Alanine Aminotransferase 28 U/L (6-35); Albumin Level 3.8 g/dL (3.5-5.1); Alkaline Phosphatase 42 U/L (38-126); Anion Gap 4 mmol/L (8-16); Aspartate Amino Transferase 27 U/L (14-36); Bilirubin,Total 0.8 mg/dL (0.2-1.3); Blood Urea Nitrogen 18 mg/dL (7-17); Calcium 8.9 mg/dL (8.4-10.2); Carbon Dioxide 26 mmol/L (22-30); Chloride 107 mmol/L (98-107); Cholesterol 199 mg/dL (0-200); Estimated Glomerular Filt Rate > 60; Glucose 111 mg/dL (65-110); HDL Direct 48 mg/dL; Magnesium 1.9 mg/dL (1.6-2.3); Potassium 3.5 mmol/L (3.4-5.0); Sodium 137 mmol/L (137-145); Triglycerides 115 mg/dL (<150)
[2022-10-11 08:54] LABS: LDL Cholesterol Direct 120 mg/dL
[2022-10-11 09:03] LABS: Free T4 Free Thyroxine 1.22 ng/mL (0.78-2.19); Vitamin D 25 Hydroxy 31.5 ng/mL
[2022-10-11 15:51] LABS: Folic Acid 6.1 ng/mL (2.76->20)
== END 2022-10-11 07:11 | disposition home or self-care (01) ==
PROVIDERS: PCP Internal Medicine; Visit Provider Internal Medicine
DX: E03.9 Hypothyroidism, unspecified (principal); E55.9 Vitamin D deficiency, unspecified; E78.5 Hyperlipidemia, unspecified; I10 Essential (primary) hypertension; R53.83 Other fatigue
CPT/HCPCS: 36415; 80053; 80061; 82306; 82607; 82746; 83735; 84439; 84443; 85025

== ENCOUNTER 2024-03-19 17:38 | Outpatient (CLI) | payer MEDICARE, SELFPAY ==
--- NOTE | ~2024-03-19 | XR_ITS ---
CHEST RADIOGRAPH, PA AND LATERAL CLINICAL HISTORY: R05.9 - Cough, unspecified, SINCE Feb . COMPARISON: 05/09/2016 TECHNIQUE: PA and lateral views of the chest. FINDINGS The cardiomediastinal silhouette is unremarkable. The lungs are clear. Visualized osseous structures and soft tissues are unremarkable. IMPRESSION: No focal infiltrate or effusion. Reviewed, dictated and finalized at location A. DAY CONSULTANT
== END 2024-03-19 17:39 | disposition home or self-care (01) ==
PROVIDERS: PCP Internal Medicine; Visit Provider Internal Medicine
DX: R05.9 Cough, unspecified (principal)
CPT/HCPCS: 71046

== ENCOUNTER 2024-05-21 17:28 | Outpatient (CLI) | payer MEDICARE, SELFPAY ==
--- NOTE | ~2024-05-21 | XR_ITS ---
EXAMINATION: XR chest 2V 05/21/2024 17:47 INDICATION: Bronchitis PROCEDURE: 2 view chest COMPARISON: 03/19/2024 FINDINGS: The lungs are clear. The cardiomediastinal silhouette is within normal limits. There are no pleural effusions. There is no pneumothorax suspected. IMPRESSION: 1: NO ACUTE CARDIOPULMONARY DISEASE. Reviewed, dictated and finalized at location A.
--- OUTSIDE RECORDS SUMMARY | 2024-05-21 17:35 | XMS_ITS | Continuity of Care Document ---
Author Organization [facility] Address [address] [place] [address] [place] [address] Phone Care Team Providers Care Medical Advisor Name Role Phone Chidi Leblanc Unavailable Unavailable Advance Directives Directive Yes / No Effective Date File Name No Information Encounters Encounter Description Practice Location Reason(s) For Visit Diagnoses Date Provider Providers Copied on Encounter [facility], [address], [place], [place], [id number], [place] tel:[phone] [facility] No Information [address] , [address], [place], [address], [place]. tel:[phone] Family History Family Member Type Diagnosis Age At Onset No Information Payers Payer name Insurance type Covered alliance party ID Authoriza tion(s) No Information Social History [...]
--- OUTSIDE RECORDS SUMMARY | 2024-05-21 17:35 | XMS_ITS | Clinical Summary ---
Author Organization [employer] [address] [facility] Address [address] [place] [address] Care Team Providers Care Dental Hygiene Teacher Name Role Phone Damian Abel Primary Care Provider [phone] Allergies No known active allergies Medications levothyroxine 112 mcg tablet Take 112 mcg by mouth daily. 1 Active losartan (COZAAR) 100 mg tablet Take 100 mg by mouth daily. Active raloxifene (EVISTA) 60 mg tablet Take 60 mg by mouth daily. 1 Active hydroCHLOROthiaz radha 25 mg tablet Take 25 mg by mouth daily. 1 Active famotidine (PEPCID) 40 mg tablet Take 40 mg by mouth daily. Active glucosamine-robert droitin (ARTHX DS) 500-400 mg Capsule Take 2 Capsules by mouth daily. Active cholecalciferol, Vitamin D3, 50 mcg (2,000 unit) Tablet Take 2,000 Units by mouth daily. Active omega-3 fatty acids-fish oil 300-1,000 mg Capsule Take 1 Capsule by mouth daily. Active HYDROcodone-acet aminophen (NORCO) 5-325 mg tabletIndication s:Cervical spondylosis with myelopathy Take 1 Tablet by mouth every 8 hours as needed for Pain. Max Daily Amount: 3 Tablets 30 Tablet 1 Active ibuprofen (MOTRIN) 800 mg tablet Take 800 mg by mouth every 6 hours as needed for Pain, Mild. Active Active Problems Problem Noted Date Diagnosed Date Cervical spondylosis with myelopathy 05/24/2020 Encounters Date Type Department Care Team Description 04/14/2024 External Device Data [facility] ABSTRACTION Provider, Abstract 03/19/2024 External Device Data [facility] ABSTRACTION Provider, Abstract 03/17/2024 External Device Data [facility] ABSTRACTION Provider, Abstract 03/10/2024 External Device Data [facility] ABSTRACTION Provider, Abstract from Last 3 Months Social History Tobacco Use Types Packs/Day Years Used Date Smoking Tobacco: Never Smokeless Tobacco: Never Tobacco Cessation:Counseling Given: No Alcohol Use Standard Drinks/Week Comments Yes 2 (1 standard drink = 0.6 oz pur e alcohol) weekly Comments No Sex and Gender Information Value Date Recorded Sex Assigned at Not on file Legal Sex Female 10:40 AM CDT Gender Identity Not on file Sexual Orientation Not on file Last Filed Vital Signs Vital Sign Reading Time Taken Comments Blood Pressure 153/80 06/13/2020 4:35 PM CDT Pulse 76 06/13/2020 4:35 PM CDT Temperature 36.7 C (98.1 F) 06/13/2020 3:47 PM CDT Respiratory Rate 12 06/13/2020 3:30 PM CDT Oxygen Saturation 94% 06/13/2020 4:35 PM CDT Inhaled Oxygen Concentration - - Weight 104.3 kg (230 lb) 12/01/2020 8:51 AM CDT Height 177.8 cm (5' 10 ) 12/01/2020 8:51 AM CDT Body Mass Index 33 12/01/2020 8:51 AM CDT Plan of Treatment Upcoming Encounters Date Type Department Care Team (Late st Contact Info) Description 06/13/2024 9:30 AM CDT Ancillary Procedure [facility] [address] [address] Pa Hannah MD [address] [facility] [address] [place] [address] Health Maintenance Due Date Last Done Comments DTAP/TDAP/TD VACCINES (1 - Tdap) 1965 PNEUMOCOCCAL VACCINE 50+ YEARS (1 of 1 - PCV) 11/17/18 97 ZOSTER VACCINE (1 of 2) 1996 OSTEOPOROSIS SCREENING 11/18/2011 RSV VACCINE (60+ or ) (1 - 1-dose 75+ series) 2021 INFLUENZA VACCINE (#1) 2023 Medical Devices Implanted Type Area Dyno Technician Device Identifier Shelf Expiration Date Model / Serial / Lot Hemostatic Surgifoam Sz12-7 1971 - Sna Implanted:Qty: 1 on 06/13/2020 by Edmund Cortés MD at [facility] Hemostatic N/A: Spine Cervical Anterior [employer]- [employer] 07/02/20231971 / NA / [id number] Hemostatic Surgiflo 8ml W/Thrombin 2994 - Sna Implanted:Qty: 1 on 06/13/2020 by Edmund Cortés MD at [facility] Hemostatic N/A: Spine Cervical Anterior [employer]- [employer] 10/25/2021 299 / NA / [id number] Hemostatic Surgifoam Sz12-7 1971 - [id number] Implanted:Qty: 1 on 06/13/2020 by Edmund Cortés MD at [facility] Hemostatic N/A: Spine Cervical Anterior [employer]- [employer] 07/02/20231971 / [id number] Plate Zevo Ac 2lvl Ti 41mm [id number] - Sna Implanted:Qty: 1 on 06/13/2020 by Edmund Cortés MD at [facility] Plate N/A: Spine Cervical Anterior [employer]OR [employer]K [id number] / NA / NA Description:LOAD # [id number] COREY REQ#[id number] Screw Zevo [address] 3.5x13mm [id number] - Sna Implanted:Qty: 6 on 06/13/2020 by Edmund Cortés MD at [facility] Screw N/A: Spine Cervical Anterior [employer] [id number] / NA / NA Description:LOAD # 211 [id number] Allograft Bone Cornerstone [id number] - [id number] Implanted:Qty: 1 on 06/13/2020 by Edmund Cortés MD at [facility] Tissue N/A: Spine Cervical Anterior [employer] 01/06/2022 [id number] / [id number] / [id number] Description:COREY REQ#[id number] Allograft Bone Cornerstone [id number] - [id number] Implanted:Qty: 1 on 06/13/2020 by Edmund Cortés MD at [facility] N/A: Spine Cervical Anterior [employer] 10/20/2022 [id number] / [id number] / [id number] Insurance RX [employer] RX Member Subscriber Plan / Payer (Ef fective 2016-Present) Name:Luz Campos Relation to Subscriber:Self Name:Luz Campos Payer ID:Not on file Group ID:[id number] Type:RX Medicare Part D Address: [address] Care Teams Dental Hygiene Teacher Relationship Specialty Start Date End Date Damian Abel DO [address] [facility] [address] [facility] [address] [place] [address] PCP - General Internal Medicine 05/20/20
== END 2024-05-21 17:29 | disposition home or self-care (01) ==
PROVIDERS: PCP Internal Medicine; Visit Provider Internal Medicine
DX: J40 Bronchitis, not specified as acute or chronic (principal)
CPT/HCPCS: 71046

== ENCOUNTER 2024-11-06 15:38 | Outpatient (CLI) | payer MEDICARE, SELFPAY ==
--- OUTSIDE RECORDS SUMMARY | 2005-11-23 10:30 | XMS_ITS | Continuity of Care Document ---
Author Organization [facility] Address [address] [place] [address] [place] [address] Phone Care Team Providers Care Battery Tester And Repairer Name Role Phone Chidi Leblanc Unavailable Unavailable Advance Directives Directive Yes / No Effective Date File Name No Information Encounters Encounter Description Practice Location Reason(s) For Visit Diagnoses Date Provider Providers Copied on Encounter [facility], [address], [place], [place], [id number], [place] tel:[phone] [facility] No Information [address] , [address], [place], [address], [place]. tel:[phone] Family History Family Member Type Diagnosis Age At Onset No Information Payers Payer name Insurance type Covered republican ID Authoriza tion(s) No Information Social History Type Description Quantity Date Captured Comments Sex Female Smoking Status No Information Chief Complaint And Reason For Visit No Information Reason For Referral Reason For Referral No Information History Of Present Illness Encounter Date Complaint History Of Prese nt Illness No Information Functional Status Date Functional Assessmen t No Information Instructions Date Instruction Additional Infor mation No Information Assessments Type Assessment Date No Information Patient Care Teams Name Effective Dates (start - stop) Status Members No Information
--- OUTSIDE RECORDS SUMMARY | 2024-11-06 16:05 | XMS_ITS | Clinical Summary ---
Author Organization [employer] [address] [facility] Address [address] [place] [address] Care Team Providers Care Optical Lathe Operator Name Role Phone Damian Abel Primary Care Provider [phone] Allergies No known active allergies Medications levothyroxine [...] Encounters Date Type Department Care Team Description 10/27/2024 External Device Data [facility] ABSTRACTION Provider, Abstract 10/13/2024 External Device Data [facility] ABSTRACTION Provider, Abstract 09/30/2024 External Device Data [facility] ABSTRACTION Provider, Abstract 09/09/2024 External Device Data [facility] ABSTRACTION Provider, Abstract 09/09/2024 External Device Data [facility] ABSTRACTION Provider, Abstract 09/09/2024 External Device Data [facility] ABSTRACTION Provider, Abstract 09/08/2024 External Device Data [facility] ABSTRACTION Provider, Abstract 08/12/2024 External Device Data [facility] ABSTRACTION Provider, Abstract 08/11/2024 External Device Data STL ABSTRACTION Provider, Abstract [...] 8:51 AM CDT Height 177.8 cm (5' 10) 12/01/2020 8:51 AM CDT Body Mass Index 33 12/01/2020 8:51 AM CDT Plan of Treatment Health Maintenance Due Date Last Done Comments DTAP/TDAP/TD VACCINES (1 - Tdap) 1965 PNEUMOCOCCAL VACCINE 50+ YEARS (1 of 1 - PCV) 11/17/18 97 ZOSTER VACCINE (1 of 2) 1996 OSTEOPOROSIS SCREENING 11/18/2011 RSV VACCINE (60+ or ) (1 - 1-dose 75+ series) 2021 INFLUENZA VACCINE (#1) 2024 Medical Devices Implanted Type Area Hob Mill Operator Device Identifier Shelf Expiration Date Model / Serial / Lot Hemostatic Surgifoam Sz12-7 1971 - Implanted:Qty: 1 on 06/13/2020 by Edmund Cortés MD at [facility] Hemostatic N/A: Spine Cervical Anterior [employer]- [employer] 07/02/20231971 / NA / [id number] Hemostatic Surgiflo 8ml W/Thrombin 2994 - Sna Implanted:Qty: 1 on 06/13/2020 by Edmund Cortés MD at [facility] Hemostatic N/A: Spine Cervical Anterior [employer]- [employer] 10/25/2021 299 / NA / [id number] Hemostatic Surgifoam Sz12-7 1971 - [id number] Implanted:Qty: 1 on 06/13/2020 by Edmund Cortés MD at [facility] Hemostatic N/A: Spine Cervical Anterior [employer]- [employer] 07/02/20231971 / [id number] Plate Zevo Ac 2lvl Ti 41mm [id number] - Sna Implanted:Qty: 1 on 06/13/2020 by Edmund Cortés MD at [facility] Plate N/A: Spine Cervical Anterior [employer] [id number] / NA / NA Description:LOAD # 211 [id number] COREY REQ#[id number] Screw Zevo [address] 3.5x13mm [id number] - Sna Implanted:Qty: 6 on 06/13/2020 by Edmund Cortés MD at [facility] Screw N/A: Spine Cervical Anterior [employer] [id number] / NA / NA Description:LOAD # 211 [id number] Allograft Bone Cornerstone [id number] - [id number] Implanted:Qty: 1 on 06/13/2020 by Edmund Cortés MD at [facility] Tissue N/A: Spine Cervical Anterior [employer] 01/06/2022 [id number] / [id number] / [id number] Description:COREY REQ#[id number] Allograft Bone Cornerstone [id number] - [id number] Implanted:Qty: 1 on 06/13/2020 by Edmund Cortés MD at [facility] N/A: Spine Cervical Anterior [employer] 10/20/2022 [id number] / [id number] / [id number] Insurance RX [employer] RX Member Subscriber Plan / Payer (Ef fective 2016-Present) Name:Luz Campos Relation to Subscriber:Self Name:Luz Campos Payer ID:Not on file Group ID:[id number] Type:RX Medicare Part D Address: [address] Care Teams Optical Lathe Operator Relationship Specialty Start Date End Date Damian Abel DO [address] [facility] [address] [facility] [address] [place] [address] PCP - General Internal Medicine 05/20/20
--- NOTE | 2024-11-16 16:29 | P.PCNHOL_ITS ---
Holter/Event Monitor Holter/Event Monitor Date of procedure: 11/06/24 Holter/Event Procedure: 3-7 Day Holter Monitor Indications: Dizziness Conclusion: 1. 5 days holter monitor on 11/06/24. 2. Predominant rhythm is sinus rhythm. HR range 51-164 bpm; average 69 bpm. 3. There are rare premature supraventricular complexes, rare supraventricular couplets, and rare supraventricular triplets. There are 25 episodes of moraes praventricular tachycardia with fastest at 164 bpm and longest lasting 12 beats. 4. There are rare premature ventricular complexes, rare ventricular couplets and longest ventricular trigeminy is 14.1 seconds. There is 1 episode of ventricular tachycardia at 158 bpm lasting 5 beats. 5. No significant pauses greater than 3 seconds. 6. Patient reports 1 episode of symptoms chest pain and left arm pain which demonstrates sinus rhythm at 62 bpm.
== END 2024-11-06 15:39 | disposition home or self-care (01) ==
PROVIDERS: PCP Internal Medicine; Visit Provider Internal Medicine
DX: R42 Dizziness and giddiness (principal)
CPT/HCPCS: 93242

== ENCOUNTER 2025-02-09 15:01 | Outpatient (CLI) | payer MEDICARE, SELFPAY ==
--- OUTSIDE RECORDS SUMMARY | 2025-02-09 17:29 | XMS_ITS | Clinical Summary ---
Author Organization [employer] [facility] [address] [facility] Address [address] [place] [address] Care Team Providers Care Classroom Instructional Aide Name Role Phone Damian Abel Primary Care Provider [phone] Allergies No known active allergies Medications levothyroxine [...] Encounters Date Type Department Care Team Description 12/22/2024 External Device Data [facility] ABSTRACTION Provider, Abstract 12/15/2024 External Device Data [facility] ABSTRACTION Provider, Abstract [...] (#1) 2024 Medical Devices Implanted Type Area Child Monitor Device Identifier Shelf Expiration Date Model / Serial / Lot Hemostatic Surgifoam Sz12-7 1971 - Implanted:Qty: 1 on 06/13/2020 by Edmund Cortés MD at [facility] Hemostatic N/A: Spine Cervical Anterior [employer]- [employer] 07/02/20231971 / NA / [id number] Hemostatic Surgiflo 8ml W/Thrombin 2994 - Sna Implanted:Qty: 1 on 06/13/2020 by Edmund Cortés MD at [facility] Hemostatic N/A: Spine Cervical Anterior [employer]- [employer] 10/25/2021 2994 / NA / [id number] Hemostatic Surgifoam Sz12-7 1971 - [id number] Implanted:Qty: 1 on 06/13/2020 by Edmund Cortés MD at [facility] Hemostatic N/A: Spine Cervical Anterior [employer]- [employer] 07/02/20231971 / / [id number] Plate Zevo Ac 2lvl Ti 41mm [id number] - Sna Implanted:Qty: 1 on 06/13/2020 by Edmund Cortés MD at [facility] Plate N/A: Spine Cervical Anterior [employer] [id number] / NA / NA Description:LOAD # 211 [id number] COREY REQ#[id number] Screw Zevo [address] St 3.5x13mm [id number] - Sna Implanted:Qty: 6 on 06/13/2020 by Edmund Cortés MD at [facility] Screw N/A: Spine Cervical Anterior [employer] [id number] / NA / NA Description:LOAD # 211 [id number] Allograft Bone Cornerstone [id number] - [id number] Implanted:Qty: 1 on 06/13/2020 by Edmund Cortés MD at [facility] Tissue N/A: Spine Cervical Anterior [employer] 01/06/2022 [id number] / [id number] / [id number] Description:COREY REQ#[id number] Allograft Bone Cornerstone [id number] - [id number] Implanted:Qty: 1 on 06/13/2020 by Edmund Cortés MD at [facility] Tissue N/A: Spine Cervical Anterior [employer] 10/20/2022 [id number] / [id number] / [id number] Insurance RX [employer] RX Member Subscriber Plan / Payer (Ef fective 2016-Present) Name:Luz Campos Relation to Subscriber:Self Name:Luz Campos Payer ID:Not on file Group ID:[id number] Type:RX Medicare Part D Address: [address] Care Teams Classroom Instructional Aide Relationship Specialty Start Date End Date Damian Abel DO [address] [facility] [address] [place] [id number] PCP - General Internal Medicine 05/20/20
--- NOTE | 2025-02-27 15:07 | P.PCNHOL_ITS ---
Holter/Event Monitor Holter/Event Monitor Date of procedure: 02/09/25 Holter/Event Procedure: 3-7 Day Holter Monitor Indications: SVT Conclusion: 1. 3 days holter monitor on 02/09/25. 2. Predominant rhythm is sinus rhythm. HR range 52-164 bpm; average 64 bpm. 3. There are rare premature supraventricular complexes, rare supraventricular couplets, and rare supraventricular triplets. There are 20 episodes of suprave ntricular tachycardia with fastest at 164 bpm and longest lasting 11 beats. 4. There are rare premature ventricular complexes and rare ventricular couplets, longest ventricular trigeminy was 10.2 seconds. No ventricular tachycardia. 5. No significant pauses greater than 3 seconds. 6. Patient reports 1 episode of symptom of lightheadedness which demonstrates sinus rhythm at 68 bpm.
== END 2025-02-09 15:02 | disposition home or self-care (01) ==
PROVIDERS: PCP Internal Medicine; Visit Provider Internal Medicine
DX: I49.1 Atrial premature depolarization (principal); I49.3 Ventricular premature depolarization; R42 Dizziness and giddiness; I47.10 Supraventricular tachycardia, unspecified
CPT/HCPCS: 93242